=== PATIENT | female | born 1935 | race Caucasian/White ===

== ENCOUNTER 2018-01-20 13:37 | Inpatient (IN) ==
[2018-01-20] MEDS ORDERED: ONDANSETRON 4 MG/2 ML VIAL IV PRN (14:02)
[2018-01-20] MEDS ORDERED: ACETAMINOPHEN 325 MG TABLET PO PRN (14:02)
[2018-01-20] MEDS ORDERED: PROMETHAZINE 25 MG/1 ML VIAL IM PRN (14:02)
[2018-01-20] MEDS ORDERED: MAGNESIUM HYDROXIDE SUSP 30 ML UDCUP PO PRN (14:02)
[2018-01-20] MEDS ORDERED: ALBUTEROL/IPRATROPIUM 3 ML NEB RESP TX ONE (14:12)
[2018-01-20] MEDS ORDERED: SODIUM CHLORIDE 0.45% 1,000 ML IV SCH (14:30)
[2018-01-20] MEDS ORDERED: DEXTROSE 50% 25 GM/50 ML VIAL IV PRN (15:39)
[2018-01-20] MEDS ORDERED: GLUCAGON 1 MG VIAL IM PRN (15:39)
[2018-01-20 16:19] LABS: Basophils % 0.2 % (0.0-0.8); Eosinophils % 0.2 % (0.00-10.9); Hemoglobin 9.8 GM/DL (12.0-16.0); Immature Granulocytes % 0.6 %; Immature Granulocytes Absolute 0.03 #; Lymphocytes # 1.5 10*3/uL (1.4-4.0); Lymphocytes % 28.6 % (21.3-54.2); Mean Corpuscular HGB Conc 31.6 GM/DL (32-36); Mean Corpuscular Hemoglobin 31 PG (27-34); Mean Corpuscular Volume 97.8 FL (87-102); Mean Platelet Volume 10.4 FL (9.6-12.0); Monocytes # 0.3 10*3/uL (0.11-0.8); Monocytes % 5.4 % (1.7-12.7); Neutrophils # 3.4 10*3/uL (1.4-7.4); Platelet Count 171 T/CUMM (130-400); Red Blood Count 3.17 MC/CUMM (3.8-5.5); Red Cell Distribution Width 12.2 % (9.3-17.3); White Blood Count 5.2 T/CUMM (4-12)
[2018-01-20 16:44] LABS: Albumin 3.5 G/DL (3.4-5.0); Bilirubin,Total 0.5 MG/DL (0.2-1.0); Calcium 8.4 MG/DL (8.5-10.1); Osmolality,Calculated 285.5 MOS/KG (273-304); Potassium 4.4 MMOL/L (3.5-5.1); Total Protein 7.2 G/DL (6.4-8.3)
[2018-01-20] MEDS: ENOXAPARIN 30 MG/0.3 ML SYRINGE SUBCUT SCH (18:35)
[2018-01-20] MEDS: cefTRIAXone 1,000 MG in SYRINGE 1 EACH IV SCH (18:36)
[2018-01-20] MEDS: AZITHROMYCIN INJ 500 MG in SODIUM CHLORIDE 0.9% 250 ML IV SCH (18:42)
[2018-01-20] MEDS: ALBUTEROL/IPRATROPIUM 3 ML NEB RESP TX SCH (19:04)
[2018-01-20] MEDS: INSULIN REGULAR 100 UNIT/ML SUBCUT SCH ×2 (19:37→21:07)
[2018-01-20] MEDS: FAMOTIDINE 20 MG TABLET PO SCH (21:03)
[2018-01-20] MEDS: METOPROLOL TARTRATE 25 MG TABLET PO SCH (21:03)
[2018-01-20] MEDS: DOCUSATE SODIUM 100 MG CAPSULE PO SCH ×2 (21:03→21:07)
[2018-01-20 22:54] LABS: Apearance,Urine Slightly Hazy (Clear); Bilirubin,Urine Negative (Negative); Blood, Urine Negative (Negative); Glucose,Urine (UA) Negative (Negative); Hyaline Casts,Urine 5 /LPF (0-3); Ketones,Urine Negative (Negative); Mucus,Urine Occasional /LPF (Occasional); Nitrite,Urine Negative (Negative); Protein,Urine Negative; RBC,Urine 2 /HPF (0-4); Squamous Epithelial Cell,Urine Occasional /HPF (0-10); Urine Color Yellow (Yellow); Urine Urobilinogen < 2.0 EU/DL (0.2-1.0); WBC,Urine 31 /HPF (0-6)
[2018-01-21] MEDS: ALBUTEROL/IPRATROPIUM 3 ML NEB RESP TX SCH ×4 (00:25→18:59)
[2018-01-21 04:49] LABS: Basophils % 0.2 % (0.0-0.8); Eosinophils % 0.2 % (0.00-10.9); Hematocrit 26.2 VOL% (35.7-47.0); Hemoglobin 8.1 GM/DL (12.0-16.0); Immature Granulocytes % 0.2 %; Immature Granulocytes Absolute 0.01 #; Lymphocytes # 1.6 10*3/uL (1.4-4.0); Lymphocytes % 38.5 % (21.3-54.2); Mean Corpuscular HGB Conc 30.9 GM/DL (32-36); Mean Corpuscular Hemoglobin 31 PG (27-34); Mean Corpuscular Volume 98.5 FL (87-102); Mean Platelet Volume 10.6 FL (9.6-12.0); Monocytes # 0.3 10*3/uL (0.11-0.8); Monocytes % 8.4 % (1.7-12.7); Neutrophils # 2.1 10*3/uL (1.4-7.4); Neutrophils % 52.5 % (38.7-73.9); Platelet Count 163 T/CUMM (130-400); Red Blood Count 2.66 MC/CUMM (3.8-5.5); Red Cell Distribution Width 12.3 % (9.3-17.3); White Blood Count 4.1 T/CUMM (4-12)
[2018-01-21 05:05] LABS: Calcium 8.1 MG/DL (8.5-10.1); Osmolality,Calculated 281.5 MOS/KG (273-304); Potassium 3.8 MMOL/L (3.5-5.1)
[2018-01-21] MEDS: SODIUM CHLORIDE 0.45% 1,000 ML IV SCH ×2 (06:15→17:46)
[2018-01-21] MEDS: INSULIN REGULAR 100 UNIT/ML SUBCUT SCH ×4 (09:55→20:18)
[2018-01-21] MEDS: DOCUSATE SODIUM 100 MG CAPSULE PO SCH ×2 (09:55→20:18)
[2018-01-21] MEDS: CETIRIZINE 10 MG TABLET PO SCH (09:55)
[2018-01-21] MEDS: FAMOTIDINE 20 MG TABLET PO SCH ×2 (09:55→20:19)
[2018-01-21] MEDS: METOPROLOL TARTRATE 25 MG TABLET PO SCH ×2 (09:55→20:19)
[2018-01-21] MEDS: AZITHROMYCIN INJ 500 MG in SODIUM CHLORIDE 0.9% 250 ML IV SCH (13:42)
[2018-01-21] MEDS: ENOXAPARIN 30 MG/0.3 ML SYRINGE SUBCUT SCH (13:43)
[2018-01-21] MEDS: cefTRIAXone 1,000 MG in SYRINGE 1 EACH IV SCH (17:43)
[2018-01-21 17:59] LABS: Hematocrit 25.2 VOL% (35.7-47.0)
[2018-01-21] MEDS ORDERED: SODIUM CHLORIDE 0.9% 1,000 ML IV PRN (18:54)
[2018-01-21 19:39] LABS: % Iron Saturation 23.5 % (18-50)
[2018-01-21 19:43] LABS: Ferritin 45.3 ng/ml (8-252)
[2018-01-22] MEDS: ALBUTEROL/IPRATROPIUM 3 ML NEB RESP TX SCH ×4 (00:34→19:47)
[2018-01-22] MEDS: SODIUM CHLORIDE 0.45% 1,000 ML IV SCH (01:39)
[2018-01-22 03:53] LABS: Hematocrit 28.6 VOL% (35.7-47.0); Hemoglobin 9.3 GM/DL (12.0-16.0)
[2018-01-22 07:39] LABS: Calcium 8.3 MG/DL (8.5-10.1); Osmolality,Calculated 284.1 MOS/KG (273-304); Potassium 3.8 MMOL/L (3.5-5.1)
[2018-01-22] MEDS ORDERED: DEXTROSE 50% 25 GM/50 ML VIAL IV PRN (08:37)
[2018-01-22] MEDS ORDERED: GLUCAGON 1 MG VIAL IM PRN (08:37)
[2018-01-22] MEDS: FAMOTIDINE 20 MG TABLET PO SCH ×2 (08:40→21:14)
[2018-01-22] MEDS: METOPROLOL TARTRATE 25 MG TABLET PO SCH ×2 (08:40→21:15)
[2018-01-22] MEDS: CETIRIZINE 10 MG TABLET PO SCH (08:40)
[2018-01-22] MEDS: DOCUSATE SODIUM 100 MG CAPSULE PO SCH ×2 (08:41→22:14)
[2018-01-22] MEDS: INSULIN REGULAR 100 UNIT/ML SUBCUT SCH ×4 (08:41→21:15)
[2018-01-22] MEDS: ENOXAPARIN 30 MG/0.3 ML SYRINGE SUBCUT SCH (14:55)
[2018-01-22] MEDS: AZITHROMYCIN INJ 500 MG in SODIUM CHLORIDE 0.9% 250 ML IV SCH (14:56)
[2018-01-22] MEDS: MEGESTROL 400 MG/10 ML UDCUP PO SCH (17:00)
[2018-01-22] MEDS: cefTRIAXone 1,000 MG in SYRINGE 1 EACH IV SCH (17:49)
[2018-01-22] MEDS: MELATONIN 3 MG TABLET PO PRN (21:14)
[2018-01-22] MEDS: FLUTICASONE 50 MCG NASAL SPRAY 16 GM BOTTLE BOTH NARES SCH (21:15)
[2018-01-22] MEDS: DONEPEZIL 10 MG TABLET PO SCH (21:15)
[2018-01-22] MEDS: MEMANTINE 10 MG TABLET PO SCH (21:15)
[2018-01-23] MEDS: ALBUTEROL/IPRATROPIUM 3 ML NEB RESP TX SCH ×4 (02:43→19:38)
[2018-01-23 05:37] LABS: Calcium 8.2 MG/DL (8.5-10.1); Osmolality,Calculated 282.1 MOS/KG (273-304); Potassium 3.9 MMOL/L (3.5-5.1)
[2018-01-23] MEDS: DOCUSATE SODIUM 100 MG CAPSULE PO SCH ×2 (09:16→22:20)
[2018-01-23] MEDS: CETIRIZINE 10 MG TABLET PO SCH (09:19)
[2018-01-23] MEDS: MEGESTROL 400 MG/10 ML UDCUP PO SCH ×2 (09:19→21:44)
[2018-01-23] MEDS: METOPROLOL TARTRATE 25 MG TABLET PO SCH ×2 (09:19→21:45)
[2018-01-23] MEDS: GLIMEPIRIDE 2 MG TABLET PO SCH (09:19)
[2018-01-23] MEDS: FLUTICASONE 50 MCG NASAL SPRAY 16 GM BOTTLE BOTH NARES SCH ×2 (09:21→21:45)
[2018-01-23] MEDS: FAMOTIDINE 20 MG TABLET PO SCH ×2 (09:21→21:45)
[2018-01-23] MEDS: MEMANTINE 10 MG TABLET PO SCH ×2 (09:21→21:45)
[2018-01-23] MEDS: INSULIN REGULAR 100 UNIT/ML SUBCUT SCH ×4 (09:22→22:20)
[2018-01-23] MEDS: SODIUM CHLORIDE 0.45% 1,000 ML IV SCH ×3 (15:15→18:05)
[2018-01-23] MEDS: AZITHROMYCIN INJ 500 MG in SODIUM CHLORIDE 0.9% 250 ML IV SCH (15:59)
[2018-01-23] MEDS: ENOXAPARIN 30 MG/0.3 ML SYRINGE SUBCUT SCH (15:59)
[2018-01-23] MEDS: cefTRIAXone 1,000 MG in SYRINGE 1 EACH IV SCH (18:20)
[2018-01-23] MEDS: MELATONIN 3 MG TABLET PO PRN (21:44)
[2018-01-23] MEDS: DONEPEZIL 10 MG TABLET PO SCH (21:45)
[2018-01-24] MEDS: ALBUTEROL/IPRATROPIUM 3 ML NEB RESP TX SCH ×4 (00:14→19:26)
[2018-01-24 05:05] LABS: Basophils % 0.2 % (0.0-0.8); Eosinophils % 0.5 % (0.00-10.9); Hematocrit 27.5 VOL% (35.7-47.0); Hemoglobin 8.7 GM/DL (12.0-16.0); Immature Granulocytes % 0.5 %; Immature Granulocytes Absolute 0.03 #; Lymphocytes # 0.9 10*3/uL (1.4-4.0); Lymphocytes % 14.9 % (21.3-54.2); Mean Corpuscular HGB Conc 31.6 GM/DL (32-36); Mean Corpuscular Hemoglobin 31 PG (27-34); Mean Corpuscular Volume 96.8 FL (87-102); Mean Platelet Volume 10.8 FL (9.6-12.0); Monocytes # 0.5 10*3/uL (0.11-0.8); Monocytes % 8.3 % (1.7-12.7); Neutrophils # 4.7 10*3/uL (1.4-7.4); Neutrophils % 75.6 % (38.7-73.9); Platelet Count 154 T/CUMM (130-400); Red Blood Count 2.84 MC/CUMM (3.8-5.5); Red Cell Distribution Width 12.7 % (9.3-17.3); White Blood Count 6.3 T/CUMM (4-12)
[2018-01-24 05:24] LABS: Calcium 7.6 MG/DL (8.5-10.1); Osmolality,Calculated 281.1 MOS/KG (273-304); Potassium 3.9 MMOL/L (3.5-5.1)
[2018-01-24] MEDS: SODIUM CHLORIDE 0.45% 1,000 ML IV SCH ×3 (07:17→18:21)
[2018-01-24] MEDS: INSULIN REGULAR 100 UNIT/ML SUBCUT SCH ×4 (08:25→21:58)
[2018-01-24] MEDS: GLIMEPIRIDE 2 MG TABLET PO SCH (08:41)
[2018-01-24] MEDS: DOCUSATE SODIUM 100 MG CAPSULE PO SCH ×2 (08:41→21:58)
[2018-01-24] MEDS: CETIRIZINE 10 MG TABLET PO SCH (08:42)
[2018-01-24] MEDS: FLUTICASONE 50 MCG NASAL SPRAY 16 GM BOTTLE BOTH NARES SCH ×2 (08:42→21:24)
[2018-01-24] MEDS: MEMANTINE 10 MG TABLET PO SCH ×2 (08:42→21:23)
[2018-01-24] MEDS: METOPROLOL TARTRATE 25 MG TABLET PO SCH ×2 (08:42→21:23)
[2018-01-24] MEDS: FAMOTIDINE 20 MG TABLET PO SCH ×2 (08:42→21:23)
[2018-01-24] MEDS: MEGESTROL 400 MG/10 ML UDCUP PO SCH ×2 (08:42→21:23)
[2018-01-24] MEDS: AZITHROMYCIN INJ 500 MG in SODIUM CHLORIDE 0.9% 250 ML IV SCH (14:41)
[2018-01-24] MEDS: ENOXAPARIN 30 MG/0.3 ML SYRINGE SUBCUT SCH (14:41)
[2018-01-24] MEDS: cefTRIAXone 1,000 MG in SYRINGE 1 EACH IV SCH (17:13)
[2018-01-24] MEDS: MELATONIN 3 MG TABLET PO PRN (21:23)
[2018-01-24] MEDS: DONEPEZIL 10 MG TABLET PO SCH (21:23)
[2018-01-25] MEDS: ALBUTEROL/IPRATROPIUM 3 ML NEB RESP TX SCH ×4 (00:13→19:14)
[2018-01-25 05:48] LABS: Potassium 4.4 MMOL/L (3.5-5.1)
[2018-01-25] MEDS: INSULIN REGULAR 100 UNIT/ML SUBCUT SCH ×4 (07:23→20:53)
[2018-01-25] MEDS: CETIRIZINE 10 MG TABLET PO SCH (09:55)
[2018-01-25] MEDS: FAMOTIDINE 20 MG TABLET PO SCH ×2 (09:55→20:39)
[2018-01-25] MEDS: MEGESTROL 400 MG/10 ML UDCUP PO SCH ×2 (09:55→20:40)
[2018-01-25] MEDS: METOPROLOL TARTRATE 25 MG TABLET PO SCH ×2 (09:55→20:39)
[2018-01-25] MEDS: FLUTICASONE 50 MCG NASAL SPRAY 16 GM BOTTLE BOTH NARES SCH ×2 (09:56→20:46)
[2018-01-25] MEDS: DOCUSATE SODIUM 100 MG CAPSULE PO SCH ×2 (09:56→20:39)
[2018-01-25] MEDS: MEMANTINE 10 MG TABLET PO SCH ×2 (09:56→20:39)
[2018-01-25] MEDS ORDERED: TUBERCULIN SKIN TEST 0.1 ML SYRINGE INTRADERM ONE (11:00)
[2018-01-25] MEDS: SODIUM CHLORIDE 0.45% 1,000 ML IV SCH (14:32)
[2018-01-25] MEDS: AZITHROMYCIN INJ 500 MG in SODIUM CHLORIDE 0.9% 250 ML IV SCH (15:49)
[2018-01-25] MEDS: ENOXAPARIN 30 MG/0.3 ML SYRINGE SUBCUT SCH (15:49)
[2018-01-25] MEDS: cefTRIAXone 1,000 MG in SYRINGE 1 EACH IV SCH (18:24)
[2018-01-25] MEDS: MELATONIN 3 MG TABLET PO PRN (20:42)
[2018-01-25] MEDS: DONEPEZIL 10 MG TABLET PO SCH (20:58)
[2018-01-26] MEDS: ALBUTEROL/IPRATROPIUM 3 ML NEB RESP TX SCH ×2 (00:53→07:00)
[2018-01-26 04:39] LABS: Basophils % 0.3 % (0.0-0.8); Eosinophils % 0.7 % (0.00-10.9); Hematocrit 27.6 VOL% (35.7-47.0); Hemoglobin 8.6 GM/DL (12.0-16.0); Immature Granulocytes % 0.7 %; Immature Granulocytes Absolute 0.04 #; Lymphocytes # 0.9 10*3/uL (1.4-4.0); Lymphocytes % 14.1 % (21.3-54.2); Mean Corpuscular HGB Conc 31.2 GM/DL (32-36); Mean Corpuscular Hemoglobin 30 PG (27-34); Mean Corpuscular Volume 97.5 FL (87-102); Mean Platelet Volume 10.8 FL (9.6-12.0); Monocytes # 0.4 10*3/uL (0.11-0.8); Neutrophils # 4.7 10*3/uL (1.4-7.4); Neutrophils % 77.2 % (38.7-73.9); Platelet Count 176 T/CUMM (130-400); Red Blood Count 2.83 MC/CUMM (3.8-5.5); Red Cell Distribution Width 12.7 % (9.3-17.3); White Blood Count 6.1 T/CUMM (4-12)
[2018-01-26 05:26] LABS: Potassium 4.3 MMOL/L (3.5-5.1)
[2018-01-26 07:28] VITALS: BP 133/67
[2018-01-26] MEDS: INSULIN REGULAR 100 UNIT/ML SUBCUT SCH (08:24)
[2018-01-26] MEDS: FLUTICASONE 50 MCG NASAL SPRAY 16 GM BOTTLE BOTH NARES SCH (09:36)
[2018-01-26] MEDS: MEGESTROL 400 MG/10 ML UDCUP PO SCH (09:36)
[2018-01-26] MEDS: DOCUSATE SODIUM 100 MG CAPSULE PO SCH (09:36)
[2018-01-26] MEDS: MEMANTINE 10 MG TABLET PO SCH (09:36)
[2018-01-26] MEDS: METOPROLOL TARTRATE 25 MG TABLET PO SCH (09:36)
[2018-01-26] MEDS: FAMOTIDINE 20 MG TABLET PO SCH (09:36)
[2018-01-26] MEDS: CETIRIZINE 10 MG TABLET PO SCH (09:36)
== END 2018-01-26 10:53 | DRG 194 ==
LOC: N.5E 14:46
PROVIDERS: ADMIT Internal Medicine; ATTEND Internal Medicine

== ENCOUNTER 2018-09-17 06:45 | Inpatient (IN) ==
[2018-09-17] MEDS ORDERED: FUROSEMIDE 40 MG/4 ML VIAL IV STA (07:15)
[2018-09-17 08:06] LABS: Basophils % 0.3 % (0.0-0.8); Hematocrit 33.4 VOL% (35.7-47.0); Hemoglobin 10.1 GM/DL (12.0-16.0); Immature Granulocytes % 0.6 %; Immature Granulocytes Absolute 0.07 #; Lymphocytes # 0.6 10*3/uL (1.4-4.0); Lymphocytes % 5.3 % (21.3-54.2); Mean Corpuscular HGB Conc 30.2 GM/DL (32-36); Mean Corpuscular Volume 93.6 FL (87-102); Monocytes % 3.7 % (1.7-12.7); Neutrophils % 90.1 % (38.7-73.9); Platelet Count 250 T/CUMM (130-400); Red Blood Count 3.57 MC/CUMM (3.8-5.5); Red Cell Distribution Width 14.7 % (9.3-17.3); White Blood Count 11.8 T/CUMM (4-12)
[2018-09-17 08:09] LABS: Amorphous Crystals,Urine Few /HPF (Few); Apearance,Urine CLOUDY (Clear); Bilirubin,Urine Negative (Negative); Blood, Urine Negative (Negative); Glucose,Urine (UA) Negative (Negative); Hyaline Casts,Urine 11 /LPF (0-3); Ketones,Urine Negative (Negative); Mucus,Urine Occasional /LPF (Occasional); Nitrite,Urine Negative (Negative); Protein,Urine 30 MG/DL; RBC,Urine 1 /HPF (0-4); Squamous Epithelial Cell,Urine Occasional /HPF (0-10); Urine Color Yellow (Yellow); Urine Specific Gravity 1.016 (1.001-1.035); Urine Urobilinogen < 2.0 EU/DL (0.2-1.0); WBC,Urine 62 /HPF (0-6)
[2018-09-17 08:12] LABS: ABG Base Excess 6.9 MMOL/L (-2.5-2.5); ABG HCO3 32.7 MMOL/L (20-26); ABG Oxygen Saturation 91.9 % (95-100); ABG PCO2 52.5 MM HG (35-48); ABG PH 7.412 (7.35-7.45); ABG PO2 66.4 MM HG (80-95); ABG TCO2 34.3 MMOL/L (23-27)
[2018-09-17 08:28] LABS: INR 0.9; PT Patient Result 10.1 SECS; Partial Thromboplastin Time 29.1 SECS (0-40)
[2018-09-17 08:30] LABS: Albumin 3.1 G/DL (3.4-5.0); Bilirubin,Total 0.4 MG/DL (0.2-1.0); Osmolality,Calculated 298.7 MOS/KG (273-304); Thyroid Stimulating Hormone 3.09 uIU/ml (0.358-3.74); Total Protein 6.2 G/DL (6.4-8.3)
[2018-09-17] MEDS ORDERED: LEVOFLOXACIN INJ 250 MG in PREMIX 1 EACH IV STA (09:09)
[2018-09-17] MEDS ORDERED: ONDANSETRON 4 MG/2 ML VIAL IV PRN (09:34)
[2018-09-17] MEDS: ENOXAPARIN 30 MG/0.3 ML SYRINGE SUBCUT SCH (12:35)
[2018-09-17] MEDS: SODIUM CHLORIDE 0.45% 1,000 ML IV SCH (12:35)
[2018-09-17] MEDS ORDERED: ALUMINUM/MAGNES/SIMETH MAX STR 30 ML UDCUP PO PRN (14:32)
[2018-09-17] MEDS ORDERED: MAGNESIUM HYDROXIDE SUSP 30 ML UDCUP PO PRN (14:32)
[2018-09-17] MEDS ORDERED: GLUCAGON 1 MG VIAL IM PRN (14:44)
[2018-09-17] MEDS ORDERED: DEXTROSE 50% 25 GM/50 ML VIAL IV PRN (14:44)
[2018-09-17] MEDS ORDERED: DEXTROSE 10% 250 ML IV PRN (14:54)
[2018-09-17] MEDS: INSULIN REGULAR 100 UNIT/ML SUBCUT SCH ×2 (18:32→21:26)
[2018-09-17] MEDS: busPIRone 5 MG TABLET PO SCH (21:25)
[2018-09-17] MEDS: METOPROLOL TARTRATE 25 MG TABLET PO SCH (21:25)
[2018-09-17] MEDS: MEMANTINE 10 MG TABLET PO SCH (21:25)
[2018-09-17] MEDS: OLANZapine 5 MG TABLET PO SCH (21:25)
[2018-09-17] MEDS: FAMOTIDINE 20 MG TABLET PO SCH (21:25)
[2018-09-17] MEDS: DOCUSATE SODIUM 100 MG CAPSULE PO SCH (21:25)
[2018-09-17] MEDS: MELATONIN 3 MG TABLET PO PRN (21:25)
[2018-09-17] MEDS: traZODone 50 MG TABLET PO SCH (21:25)
[2018-09-17] MEDS: DONEPEZIL 10 MG TABLET PO SCH (21:25)
[2018-09-17] MEDS: FLUTICASONE 50 MCG NASAL SPRAY 16 GM BOTTLE BOTH NARES SCH (21:26)
[2018-09-18 05:00] LABS: Basophils % 0.2 % (0.0-0.8); Eosinophils % 0.1 % (0.00-10.9); Hematocrit 28.1 VOL% (35.7-47.0); Hemoglobin 8.8 GM/DL (12.0-16.0); Immature Granulocytes % 0.5 %; Immature Granulocytes Absolute 0.09 #; Lymphocytes # 1.2 10*3/uL (1.4-4.0); Lymphocytes % 6.7 % (21.3-54.2); Mean Corpuscular HGB Conc 31.3 GM/DL (32-36); Mean Corpuscular Volume 91.5 FL (87-102); Mean Platelet Volume 10.4 FL (9.6-12.0); Monocytes % 2.9 % (1.7-12.7); Neutrophils % 89.6 % (38.7-73.9); Platelet Count 205 T/CUMM (130-400); Red Blood Count 3.07 MC/CUMM (3.8-5.5); Red Cell Distribution Width 14.9 % (9.3-17.3); White Blood Count 17.6 T/CUMM (4-12)
[2018-09-18 05:28] LABS: Albumin 2.7 G/DL (3.4-5.0); Bilirubin,Total 0.7 MG/DL (0.2-1.0); Osmolality,Calculated 289.7 MOS/KG (273-304); Total Protein 6.1 G/DL (6.4-8.3)
[2018-09-18 05:34] LABS: Anisocytosis 1+; Band Neutrophils 6 % (0-10); Lymphocytes 4 % (20-55); Platelet Estimate Adequate; Segmented Neutrophils 88 % (50-85); Total Cells Counted 100
[2018-09-18] MEDS: SODIUM CHLORIDE 0.45% 1,000 ML IV SCH ×2 (06:44→18:45)
[2018-09-18] MEDS: FLUTICASONE 50 MCG NASAL SPRAY 16 GM BOTTLE BOTH NARES SCH ×2 (10:38→20:47)
[2018-09-18] MEDS: OLANZapine 5 MG TABLET PO SCH ×2 (10:38→20:46)
[2018-09-18] MEDS: CETIRIZINE 10 MG TABLET PO SCH (10:38)
[2018-09-18] MEDS: cefTRIAXone 1,000 MG in SYRINGE 1 EACH IV SCH (10:38)
[2018-09-18] MEDS: DONEPEZIL 10 MG TABLET PO SCH ×2 (10:38→20:46)
[2018-09-18] MEDS: FOLIC ACID 1 MG TABLET PO SCH (10:39)
[2018-09-18] MEDS: METOPROLOL TARTRATE 25 MG TABLET PO SCH ×2 (10:39→20:46)
[2018-09-18] MEDS: MEMANTINE 10 MG TABLET PO SCH ×2 (10:39→20:46)
[2018-09-18] MEDS: DOCUSATE SODIUM 100 MG CAPSULE PO SCH ×2 (10:39→20:46)
[2018-09-18] MEDS: busPIRone 5 MG TABLET PO SCH ×2 (10:39→20:45)
[2018-09-18] MEDS: FAMOTIDINE 20 MG TABLET PO SCH ×2 (10:39→20:47)
[2018-09-18] MEDS: PANTOPRAZOLE 40 MG TABLET PO SCH (10:39)
[2018-09-18] MEDS: INSULIN REGULAR 100 UNIT/ML SUBCUT SCH ×4 (12:09→21:58)
[2018-09-18] MEDS: ENOXAPARIN 30 MG/0.3 ML SYRINGE SUBCUT SCH (12:10)
[2018-09-18] MEDS: SODIUM CHLORIDE 0.9% 1,000 ML IV SCH ×2 (17:14→20:45)
[2018-09-18] MEDS: traZODone 50 MG TABLET PO SCH (20:45)
[2018-09-18] MEDS: ACETAMINOPHEN 325 MG TABLET PO PRN (20:46)
[2018-09-18] MEDS: MELATONIN 3 MG TABLET PO PRN (20:46)
[2018-09-19 05:28] LABS: Albumin 2.2 G/DL (3.4-5.0); Bilirubin,Total 0.7 MG/DL (0.2-1.0); Calcium 8.7 MG/DL (8.5-10.1); Total Protein 5.5 G/DL (6.4-8.3)
[2018-09-19] MEDS ORDERED: LEVOFLOXACIN INJ 250 MG in PREMIX 1 EACH IV SCH (09:00)
[2018-09-19] MEDS: OLANZapine 5 MG TABLET PO SCH ×2 (09:30→21:40)
[2018-09-19] MEDS: INSULIN REGULAR 100 UNIT/ML SUBCUT SCH ×4 (09:30→21:46)
[2018-09-19] MEDS: cefTRIAXone 1,000 MG in SYRINGE 1 EACH IV SCH (09:31)
[2018-09-19] MEDS: FLUTICASONE 50 MCG NASAL SPRAY 16 GM BOTTLE BOTH NARES SCH ×2 (09:31→21:40)
[2018-09-19] MEDS: METOPROLOL TARTRATE 25 MG TABLET PO SCH ×2 (09:32→21:40)
[2018-09-19] MEDS: DONEPEZIL 10 MG TABLET PO SCH ×2 (09:32→21:40)
[2018-09-19] MEDS: FOLIC ACID 1 MG TABLET PO SCH (09:32)
[2018-09-19] MEDS: PANTOPRAZOLE 40 MG TABLET PO SCH (09:32)
[2018-09-19] MEDS: FAMOTIDINE 20 MG TABLET PO SCH ×2 (09:32→21:40)
[2018-09-19] MEDS: busPIRone 5 MG TABLET PO SCH ×2 (09:32→21:40)
[2018-09-19] MEDS: MEMANTINE 10 MG TABLET PO SCH ×2 (09:32→21:40)
[2018-09-19] MEDS: DOCUSATE SODIUM 100 MG CAPSULE PO SCH ×2 (09:33→21:40)
[2018-09-19] MEDS: CETIRIZINE 10 MG TABLET PO SCH (09:33)
[2018-09-19] MEDS: ENOXAPARIN 30 MG/0.3 ML SYRINGE SUBCUT SCH (11:18)
[2018-09-19] MEDS: traZODone 50 MG TABLET PO SCH (21:40)
[2018-09-19] MEDS: MELATONIN 3 MG TABLET PO PRN (21:40)
[2018-09-19] MEDS: ACETAMINOPHEN 325 MG TABLET PO PRN (21:40)
[2018-09-20] MEDS: INSULIN REGULAR 100 UNIT/ML SUBCUT SCH ×4 (08:43→21:46)
[2018-09-20] MEDS: DOCUSATE SODIUM 100 MG CAPSULE PO SCH ×2 (09:08→21:52)
[2018-09-20] MEDS: CETIRIZINE 10 MG TABLET PO SCH (09:08)
[2018-09-20] MEDS: FOLIC ACID 1 MG TABLET PO SCH (09:08)
[2018-09-20] MEDS: busPIRone 5 MG TABLET PO SCH ×2 (09:08→21:51)
[2018-09-20] MEDS: OLANZapine 5 MG TABLET PO SCH ×2 (09:08→21:51)
[2018-09-20] MEDS: DONEPEZIL 10 MG TABLET PO SCH ×2 (09:08→21:51)
[2018-09-20] MEDS: PANTOPRAZOLE 40 MG TABLET PO SCH (09:08)
[2018-09-20] MEDS: FAMOTIDINE 20 MG TABLET PO SCH ×2 (09:09→21:52)
[2018-09-20] MEDS: cefTRIAXone 1,000 MG in SYRINGE 1 EACH IV SCH (09:09)
[2018-09-20] MEDS: MEMANTINE 10 MG TABLET PO SCH ×2 (09:09→21:51)
[2018-09-20] MEDS: FLUTICASONE 50 MCG NASAL SPRAY 16 GM BOTTLE BOTH NARES SCH ×2 (09:22→21:48)
[2018-09-20] MEDS: METOPROLOL TARTRATE 25 MG TABLET PO SCH ×2 (09:22→21:51)
[2018-09-20] MEDS: SODIUM CHLORIDE 0.9% 1,000 ML IV SCH ×2 (09:25→21:00)
[2018-09-20 13:59] LABS: Basophils % 0.2 % (0.0-0.8); Eosinophils % 0.3 % (0.00-10.9); Hematocrit 27.4 VOL% (35.7-47.0); Hemoglobin 8.5 GM/DL (12.0-16.0); Immature Granulocytes Absolute 0.09 #; Lymphocytes # 0.9 10*3/uL (1.4-4.0); Lymphocytes % 9.8 % (21.3-54.2); Mean Corpuscular Volume 93.2 FL (87-102); Mean Platelet Volume 10.4 FL (9.6-12.0); Monocytes % 4.6 % (1.7-12.7); Neutrophils % 84.1 % (38.7-73.9); Platelet Count 190 T/CUMM (130-400); Red Blood Count 2.94 MC/CUMM (3.8-5.5); Red Cell Distribution Width 15.6 % (9.3-17.3)
[2018-09-20 14:31] LABS: Alanine Aminotransferase 12 U/L (13-56); Albumin 2.3 G/DL (3.4-5.0); Alkaline Phosphatase 63 U/L (45-117); Aspartate Amino Transferase 22 U/L (0-37); Bilirubin,Total < 0.39 MG/DL (0.2-1.0); Blood Urea Nitrogen 33 MG/DL (7-18); Calcium 8.6 MG/DL (8.5-10.1); Glucose 161 MG/DL (74-106); Total Protein 5.9 G/DL (6.4-8.3)
[2018-09-20] MEDS ORDERED: VANCOMYCIN INJ 1,250 MG in SODIUM CHLORIDE 0.9% 250 ML IV ONE (15:00)
[2018-09-20] MEDS: ENOXAPARIN 30 MG/0.3 ML SYRINGE SUBCUT SCH (15:43)
[2018-09-20] MEDS: VANCOMYCIN INJ 1,000 MG in SODIUM CHLORIDE 0.9% 250 ML IV PRN ×2 (15:44→16:13)
[2018-09-20] MEDS: POTASSIUM CHLORIDE RIDER 10 MEQ in PREMIX 1 EACH IV PRN ×3 (18:33→22:58)
[2018-09-20 20:14] LABS: Hypochromasia Slight; Lymphocytes 13 % (20-55); Platelet Estimate Adequate; Segmented Neutrophils 84 % (50-85); Total Cells Counted 100
[2018-09-20] MEDS: traZODone 50 MG TABLET PO SCH (21:52)
[2018-09-21 05:02] LABS: Basophils % 0.1 % (0.0-0.8); Eosinophils # 0.1 10*3/uL (0.0-0.87); Eosinophils % 0.7 % (0.00-10.9); Hematocrit 27.3 VOL% (35.7-47.0); Hemoglobin 8.3 GM/DL (12.0-16.0); Immature Granulocytes % 1.9 %; Immature Granulocytes Absolute 0.14 #; Lymphocytes # 1.3 10*3/uL (1.4-4.0); Lymphocytes % 17.5 % (21.3-54.2); Mean Corpuscular HGB Conc 30.4 GM/DL (32-36); Mean Corpuscular Volume 95.1 FL (87-102); Mean Platelet Volume 10.7 FL (9.6-12.0); Monocytes % 6.3 % (1.7-12.7); Neutrophils % 73.5 % (38.7-73.9); Platelet Count 185 T/CUMM (130-400); Red Blood Count 2.87 MC/CUMM (3.8-5.5); Red Cell Distribution Width 15.7 % (9.3-17.3); White Blood Count 7.2 T/CUMM (4-12)
[2018-09-21 07:20] LABS: Calcium 8.8 MG/DL (8.5-10.1)
[2018-09-21] MEDS ORDERED: SODIUM CHLORIDE 0.9% 1,000 ML IV PRN (08:17)
[2018-09-21] MEDS: METOPROLOL TARTRATE 25 MG TABLET PO SCH ×2 (09:20→23:24)
[2018-09-21] MEDS: CETIRIZINE 10 MG TABLET PO SCH (09:20)
[2018-09-21] MEDS: MEMANTINE 10 MG TABLET PO SCH ×2 (09:20→23:24)
[2018-09-21] MEDS: DOCUSATE SODIUM 100 MG CAPSULE PO SCH ×2 (09:21→23:25)
[2018-09-21] MEDS: INSULIN REGULAR 100 UNIT/ML SUBCUT SCH ×4 (09:21→23:28)
[2018-09-21] MEDS: PANTOPRAZOLE 40 MG TABLET PO SCH (09:21)
[2018-09-21] MEDS: busPIRone 5 MG TABLET PO SCH ×2 (09:21→23:25)
[2018-09-21] MEDS: DONEPEZIL 10 MG TABLET PO SCH ×2 (09:21→23:23)
[2018-09-21] MEDS: FAMOTIDINE 20 MG TABLET PO SCH ×2 (09:21→23:23)
[2018-09-21] MEDS: FLUTICASONE 50 MCG NASAL SPRAY 16 GM BOTTLE BOTH NARES SCH ×2 (09:22→23:28)
[2018-09-21] MEDS: OLANZapine 5 MG TABLET PO SCH ×2 (09:29→23:24)
[2018-09-21] MEDS: FOLIC ACID 1 MG TABLET PO SCH (09:30)
[2018-09-21] MEDS: ENOXAPARIN 30 MG/0.3 ML SYRINGE SUBCUT SCH (09:30)
[2018-09-21] MEDS: SODIUM CHLORIDE 0.9% 1,000 ML IV SCH (18:09)
[2018-09-21] MEDS: VANCOMYCIN INJ 1,000 MG in SODIUM CHLORIDE 0.9% 250 ML IV SCH (18:10)
[2018-09-21] MEDS: traZODone 50 MG TABLET PO SCH (23:25)
[2018-09-22] MEDS: SODIUM CHLORIDE 0.9% 1,000 ML IV SCH ×2 (06:00→19:25)
[2018-09-22 08:26] LABS: Hematocrit 39.8 VOL% (35.7-47.0); Hemoglobin 12.6 GM/DL (12.0-16.0)
[2018-09-22] MEDS: DONEPEZIL 10 MG TABLET PO SCH ×2 (09:50→21:01)
[2018-09-22] MEDS: FOLIC ACID 1 MG TABLET PO SCH (09:50)
[2018-09-22] MEDS: OLANZapine 5 MG TABLET PO SCH ×2 (09:50→21:01)
[2018-09-22] MEDS: CETIRIZINE 10 MG TABLET PO SCH (09:50)
[2018-09-22] MEDS: MEMANTINE 10 MG TABLET PO SCH ×2 (09:50→21:00)
[2018-09-22] MEDS: busPIRone 5 MG TABLET PO SCH ×2 (09:50→21:01)
[2018-09-22] MEDS: INSULIN REGULAR 100 UNIT/ML SUBCUT SCH ×4 (09:51→23:46)
[2018-09-22] MEDS: ENOXAPARIN 30 MG/0.3 ML SYRINGE SUBCUT SCH (09:51)
[2018-09-22] MEDS: FAMOTIDINE 20 MG TABLET PO SCH ×2 (09:51→23:50)
[2018-09-22] MEDS: FLUTICASONE 50 MCG NASAL SPRAY 16 GM BOTTLE BOTH NARES SCH ×2 (09:52→21:01)
[2018-09-22] MEDS: DOCUSATE SODIUM 100 MG CAPSULE PO SCH ×2 (09:55→21:00)
[2018-09-22] MEDS: METOPROLOL TARTRATE 25 MG TABLET PO SCH ×2 (09:55→21:01)
[2018-09-22] MEDS: PANTOPRAZOLE 40 MG TABLET PO SCH (11:25)
[2018-09-22] MEDS: methylPREDNISolone SOD SUC 40 MG/1 ML VIAL IV SCH (17:15)
[2018-09-22] MEDS: cefTRIAXone 500 MG in SYRINGE 1 EACH IV SCH (17:31)
[2018-09-22] MEDS: ALBUTEROL/IPRATROPIUM 3 ML NEB RESP TX SCH ×2 (19:45→23:55)
[2018-09-22] MEDS: traZODone 50 MG TABLET PO SCH (21:01)
[2018-09-23] MEDS: methylPREDNISolone SOD SUC 40 MG/1 ML VIAL IV SCH ×3 (00:19→16:15)
[2018-09-23 05:00] LABS: Basophils % 0.2 % (0.0-0.8); Hematocrit 31.6 VOL% (35.7-47.0); Hemoglobin 9.8 GM/DL (12.0-16.0); Immature Granulocytes % 1.9 %; Immature Granulocytes Absolute 0.11 #; Lymphocytes # 0.6 10*3/uL (1.4-4.0); Lymphocytes % 10.5 % (21.3-54.2); Mean Corpuscular Volume 92.7 FL (87-102); Mean Platelet Volume 9.9 FL (9.6-12.0); Neutrophils % 86.4 % (38.7-73.9); Platelet Count 178 T/CUMM (130-400); Red Blood Count 3.41 MC/CUMM (3.8-5.5); Red Cell Distribution Width 16.1 % (9.3-17.3); White Blood Count 5.8 T/CUMM (4-12)
[2018-09-23] MEDS: VANCOMYCIN INJ 1,000 MG in SODIUM CHLORIDE 0.9% 250 ML IV SCH (05:05)
[2018-09-23 05:45] LABS: Albumin 2.3 G/DL (3.4-5.0); Bilirubin,Total 0.5 MG/DL (0.2-1.0); Calcium 9.2 MG/DL (8.5-10.1); Osmolality,Calculated 292.1 MOS/KG (273-304); Total Protein 6.2 G/DL (6.4-8.3)
[2018-09-23] MEDS: ALBUTEROL/IPRATROPIUM 3 ML NEB RESP TX SCH ×3 (07:16→20:51)
[2018-09-23] MEDS: INSULIN REGULAR 100 UNIT/ML SUBCUT SCH ×4 (08:58→20:58)
[2018-09-23] MEDS: FLUTICASONE 50 MCG NASAL SPRAY 16 GM BOTTLE BOTH NARES SCH ×2 (08:59→20:42)
[2018-09-23] MEDS: PANTOPRAZOLE 40 MG TABLET PO SCH (08:59)
[2018-09-23] MEDS: OLANZapine 5 MG TABLET PO SCH ×2 (08:59→20:41)
[2018-09-23] MEDS: DONEPEZIL 10 MG TABLET PO SCH ×2 (08:59→20:41)
[2018-09-23] MEDS: busPIRone 5 MG TABLET PO SCH ×2 (08:59→20:40)
[2018-09-23] MEDS: CETIRIZINE 10 MG TABLET PO SCH (08:59)
[2018-09-23] MEDS: MEMANTINE 10 MG TABLET PO SCH ×2 (08:59→20:41)
[2018-09-23] MEDS: FOLIC ACID 1 MG TABLET PO SCH (08:59)
[2018-09-23] MEDS: FAMOTIDINE 20 MG TABLET PO SCH ×2 (08:59→20:41)
[2018-09-23] MEDS: METOPROLOL TARTRATE 25 MG TABLET PO SCH ×2 (08:59→20:41)
[2018-09-23] MEDS: DOCUSATE SODIUM 100 MG CAPSULE PO SCH ×2 (08:59→20:40)
[2018-09-23] MEDS: ENOXAPARIN 30 MG/0.3 ML SYRINGE SUBCUT SCH (09:00)
[2018-09-23] MEDS: cefTRIAXone 500 MG in SYRINGE 1 EACH IV SCH (16:16)
[2018-09-23] MEDS: traZODone 50 MG TABLET PO SCH (20:40)
[2018-09-23] MEDS: SODIUM CHLORIDE 0.9% 1,000 ML IV SCH (20:46)
[2018-09-24] MEDS: methylPREDNISolone SOD SUC 40 MG/1 ML VIAL IV SCH ×2 (01:01→10:53)
[2018-09-24] MEDS: ALBUTEROL/IPRATROPIUM 3 ML NEB RESP TX SCH ×2 (02:00→06:46)
[2018-09-24] MEDS: METOPROLOL TARTRATE 25 MG TABLET PO SCH (10:50)
[2018-09-24] MEDS: DONEPEZIL 10 MG TABLET PO SCH (10:50)
[2018-09-24] MEDS: FAMOTIDINE 20 MG TABLET PO SCH (10:51)
[2018-09-24] MEDS: DOCUSATE SODIUM 100 MG CAPSULE PO SCH (10:51)
[2018-09-24] MEDS: PANTOPRAZOLE 40 MG TABLET PO SCH (10:52)
[2018-09-24] MEDS: CETIRIZINE 10 MG TABLET PO SCH (10:52)
[2018-09-24] MEDS: MEMANTINE 10 MG TABLET PO SCH (10:53)
[2018-09-24] MEDS: ENOXAPARIN 30 MG/0.3 ML SYRINGE SUBCUT SCH (10:54)
[2018-09-24] MEDS: busPIRone 5 MG TABLET PO SCH (10:54)
[2018-09-24] MEDS: FOLIC ACID 1 MG TABLET PO SCH (10:54)
[2018-09-24] MEDS: SODIUM CHLORIDE 0.9% 1,000 ML IV SCH (11:15)
[2018-09-24] MEDS: OLANZapine 5 MG TABLET PO SCH (11:15)
[2018-09-24] MEDS: INSULIN REGULAR 100 UNIT/ML SUBCUT SCH ×2 (11:15→12:26)
[2018-09-24] MEDS: FLUTICASONE 50 MCG NASAL SPRAY 16 GM BOTTLE BOTH NARES SCH (11:15)
[2018-09-24 12:51] VITALS: BP 141/89
== END 2018-09-24 14:30 | DRG 872 ==
LOC: EDUNIT# → EDBD → N.ED 06:45 → N.EDINP 09:34 → N.2E 11:57
PROVIDERS: ADMIT Internal Medicine; ATTEND Internal Medicine

== ENCOUNTER 2018-11-04 07:53 | Observation (INO) ==
[2018-11-04] MEDS ORDERED: SODIUM CHLORIDE 0.9% 500 ML IV STA (08:38)
[2018-11-04 09:14] LABS: Basophils % 0.2 % (0.0-0.8); Eosinophils % 0.7 % (0.00-10.9); Hematocrit 26.2 VOL% (35.7-47.0); Hemoglobin 7.9 GM/DL (12.0-16.0); Immature Granulocytes Absolute 0.06 #; Lymphocytes # 0.9 10*3/uL (1.4-4.0); Lymphocytes % 15.1 % (21.3-54.2); Mean Corpuscular HGB Conc 30.2 GM/DL (32-36); Mean Platelet Volume 9.6 FL (9.6-12.0); Monocytes % 10.1 % (1.7-12.7); Neutrophils % 72.9 % (38.7-73.9); Platelet Count 263 T/CUMM (130-400); Red Cell Distribution Width 15.4 % (9.3-17.3); White Blood Count 6.2 T/CUMM (4-12)
[2018-11-04 09:26] LABS: Amorphous Crystals,Urine Few /HPF (Few); Apearance,Urine CLEAR (Clear); Bacteria,Urine Many /HPF (Few); Bilirubin,Urine Negative (Negative); Blood, Urine Negative (Negative); Glucose,Urine (UA) Negative (Negative); Ketones,Urine Negative (Negative); Mucus,Urine Occasional /LPF (Occasional); Nitrite,Urine Negative (Negative); Protein,Urine 30 MG/DL; Squamous Epithelial Cell,Urine Occasional /HPF (0-10); Urine Color Yellow (Yellow); Urine Urobilinogen < 2.0 EU/DL (0.2-1.0); WBC,Urine 3 /HPF (0-6)
[2018-11-04 09:52] LABS: Alanine Aminotransferase 14 U/L (13-56); Albumin 2.4 G/DL (3.4-5.0); Alkaline Phosphatase 77 U/L (45-117); Aspartate Amino Transferase 16 U/L (0-37); Bilirubin,Total < 0.39 MG/DL (0.2-1.0); Blood Urea Nitrogen 27 MG/DL (7-18); Calcium 9.1 MG/DL (8.5-10.1); Glucose 136 MG/DL (74-106); Osmolality,Calculated 289.1 MOS/KG (273-304); Total Protein 5.8 G/DL (6.4-8.3)
[2018-11-04] MEDS ORDERED: ACETAMINOPHEN 325 MG TABLET PO PRN (10:02)
[2018-11-04] MEDS ORDERED: ONDANSETRON 4 MG/2 ML VIAL IV PRN (10:02)
[2018-11-04] MEDS ORDERED: ALUMINUM/MAGNES/SIMETH MAX STR 30 ML UDCUP PO PRN (15:53)
[2018-11-04] MEDS ORDERED: MAGNESIUM HYDROXIDE SUSP 30 ML UDCUP PO PRN (15:53)
[2018-11-04] MEDS: ALBUTEROL/IPRATROPIUM 3 ML NEB RESP TX SCH (19:32)
[2018-11-04] MEDS ORDERED: DOCUSATE SODIUM 100 MG CAPSULE PO SCH (21:00)
[2018-11-04] MEDS ORDERED: traZODone 50 MG TABLET PO PRN (21:13)
[2018-11-04] MEDS ORDERED: MELATONIN 3 MG TABLET PO PRN (21:13)
[2018-11-04] MEDS ORDERED: DEXTROSE 50% 25 GM/50 ML VIAL IV PRN (21:16)
[2018-11-04] MEDS ORDERED: GLUCAGON 1 MG VIAL IM PRN (21:16)
[2018-11-04] MEDS ORDERED: METOPROLOL SUCCINATE XL 25 MG TABLET PO ONE (21:22)
[2018-11-04] MEDS ORDERED: DONEPEZIL 10 MG TABLET PO SCH (21:30)
[2018-11-04] MEDS: FAMOTIDINE 20 MG TABLET PO SCH (21:36)
[2018-11-04] MEDS: MEMANTINE 10 MG TABLET PO SCH (21:36)
[2018-11-04] MEDS: DOCUSATE SODIUM 100 MG CAPSULE PO SCH (21:36)
[2018-11-04] MEDS: FLUTICASONE 50 MCG NASAL SPRAY 16 GM BOTTLE BOTH NARES SCH (21:36)
[2018-11-05] MEDS: ALBUTEROL/IPRATROPIUM 3 ML NEB RESP TX SCH ×2 (00:52→07:26)
[2018-11-05] MEDS ORDERED: INSULIN REGULAR 100 UNIT/ML SUBCUT SCH (07:30)
[2018-11-05] MEDS ORDERED: glipiZIDE 5 MG TABLET PO SCH (07:30)
[2018-11-05] MEDS ORDERED: METOPROLOL SUCCINATE XL 25 MG TABLET PO SCH (09:00)
[2018-11-05] MEDS ORDERED: PANTOPRAZOLE 40 MG TABLET PO SCH (09:00)
[2018-11-05] MEDS ORDERED: CALCIUM (CARBONATE)/VITAMIN D 600 MG-400 UNIT TABLET PO SCH (09:00)
[2018-11-05] MEDS: DOCUSATE SODIUM 100 MG CAPSULE PO SCH (09:12)
[2018-11-05] MEDS: MEMANTINE 10 MG TABLET PO SCH (09:12)
[2018-11-05] MEDS: FAMOTIDINE 20 MG TABLET PO SCH (09:12)
[2018-11-05] MEDS: FLUTICASONE 50 MCG NASAL SPRAY 16 GM BOTTLE BOTH NARES SCH (09:13)
[2018-11-05 10:21] VITALS: BP 135/54
== END 2018-11-05 10:26 ==
LOC: EDBD → EDUNIT# → N.ED 07:53 → N.EDINP 07:53 → N.5E 11:23
PROVIDERS: ADMIT Internal Medicine; ATTEND Internal Medicine